=== PATIENT | female | born 1935 | race African-American/Black ===

== ENCOUNTER 2017-04-02 08:11 | Inpatient (IN) | payer MEDICARE, MEDICAID ==
[~2017-04-02] VITALS: Ht 162.6 cm; Wt 79.4 kg
[~2017-04-02 08:11] MED LIST: BENA20TA3 PO; INSU3INS6 SQ; LABE100T PO
[2017-04-02] MEDS ORDERED: SODIUM CHLORIDE 0.9% 1,000 ML IV ONE (08:18)
[2017-04-02 08:51] LABS: BG CARBOXYHEMOGLOBIN 1.1 % (0.5-1.5); BG DEOXYHEMOGLOBIN 2.6 % (0.0-5.0); BG FRACTION INSPIRED OXYGEN 21; BG OXYGEN SATURATION 97.4 % (92.0-98.5); BG OXYHEMOGLOBIN 96.3 % (94.0-97.0); BG PCO2 29.2 mmHg (35.0-45.0); BG PH 7.454 (7.350-7.450); BG PO2 96.7 mmHg (75.0-100.0); BG SAMPLE SITE RIGHT BRACHIAL; BG TOTAL HEMOGLOBIN 10.5 g/dL (12.0-18.0); BG VENT MODE ROOM AIR
[2017-04-02 08:59] LABS: INR 1.2; PARTIAL THROMBOPLASTIN TIME 28.9 sec (24.0-34.0); PROTHROMBIN TIME 12.2 sec
[2017-04-02 09:02] LABS: PHOSPHORUS 2.6 mg/dL (2.5-4.9)
[2017-04-02 09:05] LABS: EOSINOPHILS % 1.5 % (0.0-5.0); HEMATOCRIT. 31.4 % (36.0-48.0); HEMOGLOBIN. 10.1 g/dL (12.0-16.0); LYMPHOCYTES % 26.9 % (20.0-50.0); MEAN CORPUSCULAR HEMOGLOBIN 29.5 pg (28.0-32.0); MEAN CORPUSCULAR VOLUME 91.8 fL (81.0-99.0); MEAN PLATELET VOLUME 8.9 fl (7.4-10.4); NEUTROPHILS % 58.6 % (40.0-76.0); PLATELET 291 x1000/uL (130-400); RED BLOOD CELL COUNT 3.42 mill/uL (4.2-5.4); RED CELL DISTRIBUTION WIDTH 21.5 % (11.6-14.6)
[2017-04-02] MEDS ORDERED: IPRATROPIUM/ALBUTEROL 0.5-3(2.5)MG/3ML NEB INH PRN (11:30)
[2017-04-02] MEDS ORDERED: ACETAMINOPHEN 325MG TABLET PO PRN (11:30)
[2017-04-02] MEDS ORDERED: LORAZEPAM 2MG/ML CPJ IV PRN (11:30)
[2017-04-02] MEDS ORDERED: HYDROMORPHONE HCL/PF 2MG/ML CPJ IV PRN (11:30)
[2017-04-02] MEDS ORDERED: MAGNESIUM/ALUMINUM HYDROXIDE/SIMETHICONE 30ML UDC PO PRN (11:30)
[2017-04-02] MEDS ORDERED: HYDROCODONE/ACETAMINOPHEN 5/325MG TABLET PO PRN (11:30)
[2017-04-02] MEDS ORDERED: GUAIFENESIN 200MG/10ML SUGAR FREE UDC PO PRN (11:30)
[2017-04-02] MEDS ORDERED: NA PHOS,M-B/NA PHOS,DI-BA ENEMA 118ML PR PRN (11:30)
[2017-04-02] MEDS ORDERED: CLONIDINE 0.1MG TABLET PO PRN (11:30)
[2017-04-02] MEDS ORDERED: ONDANSETRON HCL 4MG/2ML VIAL IV PRN (11:30)
[2017-04-02] MEDS ORDERED: DOCUSATE SODIUM 100MG CAPSULE PO PRN (11:30)
[2017-04-02 11:42] VITALS: BP 184/83
[2017-04-02 12:00] VITALS: BP 184/83
[2017-04-02] MEDS ORDERED: DEXTROSE 50% WATER 50ML SYRINGE IV PRN (12:00)
[2017-04-02] MEDS: BLOOD SUGAR DIAGNOSTIC STRIP TEST SCH ×3 (12:47→21:43)
[2017-04-02] MEDS: INSULIN LISPRO 100 UNITS/ML SUBCUT SCH ×3 (12:48→21:00)
[2017-04-02] MEDS ORDERED: CLONIDINE 0.3MG TABLET PO PRN (14:15)
[2017-04-02] MEDS ORDERED: CLONIDINE 0.3MG TABLET PO NR (14:15)
[2017-04-02 16:00] VITALS: BP 97/46
[2017-04-02 16:55] LABS: TROPONIN I 0.08 ng/mL (0.00-0.04)
[2017-04-02] MEDS: DIPHENHYDRAMINE 50MG/ML VIAL IV PRN (17:08)
[2017-04-02] MEDS ORDERED: NEPVIT PO (17:10)
[2017-04-02] MEDS ORDERED: NIFE30TA94 PO (17:12)
[2017-04-02] MEDS ORDERED: SEVE800T8 PO (17:13)
[2017-04-02 20:00] VITALS: BP 96/56
[2017-04-03] VITALS: BP 101/58
[2017-04-03 04:00] VITALS: BP 134/50
[2017-04-03] MEDS: INSULIN LISPRO 100 UNITS/ML SUBCUT SCH ×4 (05:59→21:26)
[2017-04-03] MEDS: BLOOD SUGAR DIAGNOSTIC STRIP TEST SCH ×4 (05:59→21:25)
[2017-04-03 06:18] LABS: BASOPHILS % 1.5 % (0.0-2.0); HEMATOCRIT. 25.1 % (36.0-48.0); LYMPHOCYTES % 18.7 % (20.0-50.0); MEAN CORPUSCULAR HEMOGLOBIN 29.8 pg (28.0-32.0); MEAN CORPUSCULAR VOLUME 93.2 fL (81.0-99.0); MEAN PLATELET VOLUME 8.9 fl (7.4-10.4); MONOCYTES % 13.5 % (2.0-8.0); NEUTROPHILS % 64.3 % (40.0-76.0); PLATELET 224 x1000/uL (130-400); RED BLOOD CELL COUNT 2.69 mill/uL (4.2-5.4); RED CELL DISTRIBUTION WIDTH 21.6 % (11.6-14.6)
[2017-04-03 06:40] LABS: CHLORIDE 99 mEq/L (98-107); HDL CHOLESTEROL 39 mg/dL (40-59)
[2017-04-03 06:51] LABS: CARBON DIOXIDE 24 mEq/L (21-32); LDL CHOLESTEROL 56 mg/dL (5-100)
[2017-04-03 08:00] VITALS: BP 127/47
[2017-04-03] MEDS: BENAZEPRIL 20MG TABLET PO SCH (09:00)
[2017-04-03] MEDS ORDERED: MEDICATION NOT ON FORMULARY EA (Nifedipine (Nifedipine Er) 1 TAB) PO SCH (09:00)
[2017-04-03] MEDS: NIFEDIPINE XL 30MG TAB PO SCH (09:00)
[2017-04-03] MEDS: DIPHENHYDRAMINE 50MG/ML VIAL IV PRN ×3 (09:11→21:25)
[2017-04-03] MEDS: FOLIC ACID/VITAMIN B COMP W-C TABLET PO SCH (09:11)
[2017-04-03] MEDS: SEVELAMER CARBONATE 800 MG TABLET PO SCH ×3 (09:11→18:18)
[2017-04-03] MEDS ORDERED: HEPARIN SODIUM 1,000 UNIT/1ML VIAL IV NR (11:30)
[2017-04-03 12:00] VITALS: BP 101/64
[2017-04-03 16:00] VITALS: BP 156/55
[2017-04-03 20:10] VITALS: BP 144/60
[2017-04-04] VITALS (8 sets, daily range): BP systolic 124–193; BP diastolic 63–88
[2017-04-04] MEDS: DIPHENHYDRAMINE 50MG/ML VIAL IV PRN ×2 (01:14→05:58)
[2017-04-04 05:34] LABS: BASOPHILS % 1.1 % (0.0-2.0); HEMATOCRIT. 25.3 % (36.0-48.0); HEMOGLOBIN. 8.2 g/dL (12.0-16.0); MEAN CORPUSCULAR HEMOGLOBIN 30.1 pg (28.0-32.0); MEAN CORPUSCULAR VOLUME 93.1 fL (81.0-99.0); MEAN PLATELET VOLUME 8.3 fl (7.4-10.4); MONOCYTES % 11.2 % (2.0-8.0); NEUTROPHILS % 72.7 % (40.0-76.0); PLATELET 242 x1000/uL (130-400); RED BLOOD CELL COUNT 2.72 mill/uL (4.2-5.4); RED CELL DISTRIBUTION WIDTH 21.9 % (11.6-14.6)
[2017-04-04] MEDS: BLOOD SUGAR DIAGNOSTIC STRIP TEST SCH ×3 (06:51→17:48)
[2017-04-04] MEDS: INSULIN LISPRO 100 UNITS/ML SUBCUT SCH ×3 (08:10→17:48)
[2017-04-04] MEDS ORDERED: PREDNISONE 20MG TABLET PO SCH (08:45)
[2017-04-04] MEDS: SEVELAMER CARBONATE 800 MG TABLET PO SCH ×3 (09:00→17:00)
[2017-04-04] MEDS: FOLIC ACID/VITAMIN B COMP W-C TABLET PO SCH (09:26)
[2017-04-04] MEDS: NIFEDIPINE XL 30MG TAB PO SCH (09:27)
[2017-04-04] MEDS: BENAZEPRIL 20MG TABLET PO SCH (09:27)
== END 2017-04-04 19:12 | disposition home or self-care (01) | DRG 314 ==
LOC: ER 08:14 → 7WST 09:11 → EDBEDREQ 09:25 → ENRESERV 10:14
PROVIDERS: ADMIT Internal Medicine; ATTEND Internal Medicine
PROC: 5A1D00Z (ICD-10-PCS; principal; 2017-04-03)
DX: T82.838A Hemorrhage due to vascular prosthetic devices, implants and grafts, initial encounter (principal); N18.6 End stage renal disease; G93.40 Encephalopathy, unspecified; I12.0 Hypertensive chronic kidney disease with stage 5 chronic kidney disease or end stage renal disease; E46 Unspecified protein-calorie malnutrition; D62 Acute posthemorrhagic anemia; D72.829 Elevated white blood cell count, unspecified; E11.22 Type 2 diabetes mellitus with diabetic chronic kidney disease; Y84.1 Kidney dialysis as the cause of abnormal reaction of the patient, or of later complication, without mention of misadventure at the time of the procedure; Z99.2 Dependence on renal dialysis; Y92.89 Other specified places as the place of occurrence of the external cause; Z68.30 Body mass index [BMI] 30.0-30.9, adult; Z79.4 Long term (current) use of insulin; Z79.899 Other long term (current) drug therapy; Z82.49 Family history of ischemic heart disease and other diseases of the circulatory system; Z83.3 Family history of diabetes mellitus
CPT/HCPCS: 36415; 36600; 71010; 80048; 80053; 80061; 82375; 82805; 82962; 83735; 84100; 84484; 85025; 85610; 85730; 86850; 86900; 86920; 99291; J1200; J1644; J1815; J7030; J7512